=== PATIENT | female | born 1995 | race Caucasian/White ===

== ENCOUNTER 2018-05-28 01:46 | Emergency (ER) | payer BC ==
[~2018-05-28 01:46] MED LIST: ONDA4TAB PO; TRAM-420 PO
--- NOTE | 2018-05-28 01:47 | ER Report ---
History and Physical Time Seen By MD: 01:47 HPI/ROS CHIEF COMPLAINT: Severe coughing and shortness of breath HISTORY OF PRESENT ILLNESS: 22-year-old female presents with severe coughing. Unable to sleep with chest tightness. Patient was 8 several weeks ago at the beginning of May. She was seen at urgent care and had a rapid influenza which was negative. She was placed on 10 days of an antibiotic. She is unable to recall the name. She states that she did get almost all better. She had a minimal occasional cough. She was also given codeine cough medicine. She took some last night and was unable to sleep. She is repetitive coughing and chest tightness. She's even felt a little syncopal. She notes productive of colored sputum. She over spring break travel to [place] and thinks she may been sick there. REVIEW OF SYSTEMS: Respiratory: As above Cardiovascular: As above Gastrointestinal: No vomiting, no abdominal pain. Musculoskeletal: No back pain. Allergies: Coded Allergies: No Known Drug Allergies (Unverified , 03/27/16) Home Meds Active Scripts Fluconazole (FLUCONAZOLE) 150 Mg Tab, 150 MG FT ONCE PRN for Yeast infection, #1 TAB Prov:GABBI BRUCE Vick FRIEDMAN 05/28/18 Prednisone (PREDNISONE) 20 Mg Tablet, 20 MG PO QDAY for reduce lung inflammation for 7 Days, #5 One by mouth daily for 5 days Prov:GABBI BRUCE 05/28/18 Cefuroxime Axetil (CEFUROXIME) 500 Mg Tablet, 500 MG PO BID for infection, #14 TAB Prov:GABBI BRUCE 05/28/18 Reported Medications Guaifenesin/Codeine Phosphate (Codeine-Guaifen 10-100 mg/5 ml) 120 Ml Liquid 05/28/18 Discontinued Scripts Tramadol Hcl (TRAMADOL HCL) 50 Mg Tablet, 50 MG PO Q6H PRN for PAIN, #12 TAB 0 Refills Prov:IVY SHANE MD 03/28/16 Ondansetron (ZOFRAN ODT) 4 Mg Tab.rapdis, 4 MG PO Q8H PRN for nausea, #20 TAB.ALBA 0 Refills Prov:IVY SHANE MD 03/28/16 Reviewed Nurses Notes: Yes Old Medical Records Reviewed: Yes Hx Substance Use Disorder: No Hx Alcohol Use: No Constitutional Vital Sign - Last 24 Hours 05/28/18 05/28/18 05/28/18 05/28/18 01:48 01:49 02:00 02:00 Temp 97.7 Pulse 90 74 Resp 18 18 B/P (MAP) 121/82 121/82 (95) Pulse Ox 95 96 O2 Delivery Room Air Room Air 05/28/18 05/28/18 05/28/18 05/28/18 02:16 02:18 02:35 02:37 Pulse 76 76 Resp 18 B/P (MAP) 132/76 (94) 115/72 (86) Pulse Ox 100 05/28/18 02:46 Pulse 93 Pulse Ox 94 Physical Exam Vital signs stable, afebrile, pulse ox normal General Appearance: The patient is alert, has no immediate need for airway protection and no current signs of toxicity. Moderate persistent constant coughing. HEENT: Pupils equal and round no injection. TMs normal, oropharynx with moderate erythema Respiratory: Chest is non tender, lungs are clear to auscultation. No wheezing or rails Cardiac: regular rate and rhythm Gastrointestinal: Abdomen is soft and non tender, no masses, bowel sounds normal. Musculoskeletal: Neck: Neck is supple and non tender. No lymphadenopathy, no JVD Extremities have full range of motion and are non tender. No edema, no calf tenderness Skin: No rashes or lesions. DIFFERENTIAL DIAGNOSIS: After history and physical exam differential diagnosis was considered for shortness of breath including but not limited to pulmonary infectious process, COPD, asthma, pulmonary embolus and congestive heart failure. Medical Decision Making ED Course/Re-evaluation ED Course Patient was admitted to an examination room. H&P was done. The differential diagnoses was considered. On clinical examination, patient appears severely short of breath. She appears in severe distress with her persistent coughing. Her throat is very erythematous. Patient's treated with an albuterol nebulizer treatment with lidocaine 2% 3 mL added to it. That she presses are equally cough reflex. She is sent for chest x-ray. She has no infiltrate. She'll be discharged home on Ceftin antibiotic 500 mg by mouth twice a day, prednisone 20 mg per day. She has codeine cough syrup. She's given fluconazole for potential yeast infection. Patient advised to follow-up with [facility] if unimproved in 3-5 days. Decision to Disposition Date: May 28, 2018 Decision to Disposition Time: 02:45 Depart Departure Latest Vital Signs Vital Signs Date Time Temp Pulse Resp B/P (MAP) Pulse Ox O2 Delivery O2 Flow Rate FiO2 05/28/18 02:46 93 94 05/28/18 02:37 115/72 (86) 05/28/18 02:18 18 05/28/18 02:00 Room Air 05/28/18 01:48 97.7 Impression: Primary Impression: Acute bronchitis Additional Impression: Persistent cough Condition: Improved Disposition: HOME OR SELF-CARE New Scripts Fluconazole (FLUCONAZOLE) 150 Mg Tab 150 MG FT ONCE PRN for Yeast infection, #1 TAB Prov: GABBI BRUCE DO 05/28/18 Prednisone (PREDNISONE) 20 Mg Tablet 20 MG PO QDAY for reduce lung inflammation for 7 Days, #5 One by mouth daily for 5 days Prov: GABBI BRUCE DO 05/28/18 Cefuroxime Axetil (CEFUROXIME) 500 Mg Tablet 500 MG PO BID for infection, #14 TAB Prov: GABBI BRUCE DO 05/28/18 Patient Instructions: Acute Bronchitis (ED) Additional Instructions: Take DayQuil during the daytime, NyQuil at bedtime Take ibuprofen 200 mg 2-3 tablets 3 times a day with food Take all medication with food [facility]-up with [facility] if unimproved in 3-5 days Problem Qualifiers Primary Impression: Acute bronchitis Bronchitis organism: unspecified organism Qualified Codes: J20.9 - Acute bronchitis, unspecified GABBI BRUCE DO May 28, 2018 01:47
[2018-05-28] MEDS ORDERED: GUAI120L3 (01:57)
[2018-05-28] MEDS ORDERED: ALBUTEROL 2.5 MG/3 ML NEB NEB ONE (02:00)
[2018-05-28 02:37] VITALS: BP 115/72
[2018-05-28] MEDS ORDERED: ALBUTEROL 8 GM INHALER INH ONE (02:45)
[2018-05-28] MEDS ORDERED: CEFUROXIME AXETIL 250 MG TAB PO ONE (02:45)
[2018-05-28] MEDS ORDERED: predniSONE 20 MG TAB PO ONE (02:45)
[2018-05-28] MEDS ORDERED: FLU150 FT (02:50)
[2018-05-28] MEDS ORDERED: PRED20TA6 PO (02:50)
[2018-05-28] MEDS ORDERED: CEFU500T10 PO (02:50)
--- NOTE | 2018-05-28 02:50 | RADIOLOGY IMAGING REPORT ---
FACILITY: [facility] PATIENT NAME: Norma Gomez : 1995 MR: [id number] V: [id number] EXAM DATE: ORDERING PHYSICIAN: GABBI BRUCE TECHNOLOGIST: Location: [facility] - [place] Patient: Norma Gomez : 1995 Visit/Account:[id number] Date of Sevice: 05/28/2018 CHEST PA LAT HISTORY: Cough. Dyspnea. COMPARISON: None. TECHNIQUE: PA and lateral views of the chest. FINDINGS: Pulmonary/pleura: Lungs are clear. There is no pneumothorax or pleural effusion. Cardiomediastinal: Cardiac and mediastinal silhouettes are within normal limits. Bones/soft tissues: No acute osseous abnormality. The visible abdomen is normal. IMPRESSION: 1. No acute cardiopulmonary process. Report Dictated By: Aysha Abreu at 05/28/2018 2:47 AM Report E-Signed By: Aysha Abreu at 05/28/2018 2:47 AM WSN:[id number]
== END 2018-05-28 03:15 | disposition home or self-care (01) ==
LOC: ER 02:07
DX: J20.9 Acute bronchitis, unspecified (principal); R05 Cough
CPT/HCPCS: 71046; 94640; 99283; J7512; J7613